=== PATIENT | male | born 1985 | race Caucasian/White ===

== ENCOUNTER 2025-03-18 13:03 | Outpatient (OUT) | payer OTHER, SELFPAY ==
--- OUTSIDE RECORDS SUMMARY | 2025-03-18 13:08 | XMS_ITS | Clinical Summary ---
Author Organization [facility] Address [address] [place] [address] Care Team Providers Care Electronics Engineering Technologist Name Role Phone Unavailable Primary Care Provider Unavailabl e Encounters DateTypeDepartmentCare AlsoSqognwfvodm58/08/2025 4:45 PM EDTAncillary Procedure [facility] [address] [place] [address] Sciatica, unspecified side; Radiculopathy, site unspecified; Low back pain, fgxfcakaeew08/08/2025Travelfrom Last 3 Months Social History Tobacco UseTypesPacks/DayYears UsedDateSmoking Tobacco: Never AssessedSex and Gender InformationValueDate RecordedSex Assigned at BirthNot on fileLegal Sex Male07/05/2022 6:44 PM EDTGender IdentityNot on fileSexual OrientationNot on file Plan of Treatment Not on file Procedures Procedure NamePriorityDate/TimeAssociated DiagnosisCommentsMR LUMBAR SPINE WO QSHRACPKBqwuqws31/08/2025 5:34 PM EDT Sciatica, unspecified side Radiculopathy, site unspecified Low back pain, unspecified from Last 3 Months Results * MR lumbar spine wo contrast (12/29/2024 5:34 PM EDT)Anatomical Region LateralityModalitySpine, L-spineMagnetic ResonanceSpecimen (Source)Anatomical Location / LateralityCollection Method / VolumeCollection TimeReceived Time 12/30/2024 11:11 AM EDT Impressions 12/30/2024 11:18 AM EDT Degenerative changes lumbar spine as discussed, especially involving L4-L5. ELECTRONICALLY SIGNED BY: Yannick Matos MD Narrative 12/30/2024 11:18 AM EDT EXAMINATION/TECHNIQUE: MR LUMBAR SPINE WO CONTRAST HISTORY: ?? Low back pain for years. Former college football player. Symptoms worsening. Bilateral radiculopathy, worse on the right. COMPARISON: None. ? RESULT: Counting reference: ??Lumbosacral junction. For the purposes of this report, L5- S1 is considered the last well-formed disc space. 5 lumbar type vertebral bodies. Alignment: ?Grade 1 anterolisthesis of L4 on L5 measuring around 3 mm. Alignment otherwise near-anatomic. Bone marrow signal: Bone marrow edema near the bilateral facet joints at L4 and L5, likely reactive/degenerative etiology. No evidence for recent fracture. No pathologic marrow infiltration. Conus: ??The conus is within normal limits of signal intensity and morphology. ?? Paraspinal soft tissues: ?? Unremarkable. Lower thoracic spine: ??Visualized lower thoracic canal and foramina without significant narrowing. T12-L1: ??No significant canal or foraminal narrowing. L1-L2: ?No significant canal or foraminal narrowing. L2-L3: ?Disc bulge. Facet degenerative changes. Ligamentous hypertrophy. No significant canal or foraminal narrowing. L3-L4: ?Broad-based disc bulge with possible small central zone protrusion. Endplate osteophytes. Facet degenerative changes. Ligamentous hypertrophy. No significant canal or foraminal narrowing. L4-L5: ?Anterolisthesis with disc uncovering. Disc bulge. Endplate osteophytes. Extensive facetdegenerative changes. Facet joint effusions/synovitis, with apparent small synovial cyst anterior to the left- sided facet joints measuring around 3 mm. Moderate to severe canal narrowing. Moderate tosevere right and mild to moderate left foraminal narrowing. L5-S1: ?Facet degenerative changes. No significant canal or foraminal narrowing. Sacrum and iliac wings: ?? The visualized sacrum and iliac wings are unremarkable. Procedure Note Yannick Matos MD - 12/30/2024 EXAMINATION/TECHNIQUE: MR LUMBAR SPINE WO CONTRAST HISTORY: Low back pain for years. Former college football player.Symptoms worsening. Bilateral radiculopathy, worse on the right. COMPARISON: None. RESULT: Counting reference: Lumbosacral junction. For the purposes of thisreport, L5-S1 is considered the last well-formed disc space. 5 lumbar typevertebral bodies. Alignment: Grade 1 anterolisthesis of L4 on L5 measuring around 3 mm.Alignment otherwise near-anatomic. Bone marrow signal: Bone marrow edema near the bilateral facet joints atL4 and L5, likely reactive/degenerative etiology. No evidence for recentfracture. No pathologic marrow infiltration. Conus: The conus is within normal limits of signal intensity andmorphology. Paraspinal soft tissues: Unremarkable. Lower thoracic spine: Visualized lower thoracic canal and foraminawithout significant narrowing. T12-L1: No significant canal or foraminal narrowing. L1-L2: No significant canal or foraminal narrowing. L2-L3: Disc bulge. Facet degenerative changes. Ligamentous hypertrophy.No significant canal or foraminal narrowing. L3-L4: Broad-based disc bulge with possible small central zoneprotrusion. Endplate osteophytes. Facet degenerative changes. Ligamentoushypertrophy. No significant canal or foraminal narrowing. L4-L5: Anterolisthesis with disc uncovering. Disc bulge. Endplateosteophytes. Extensive facet degenerative changes. Facet jointeffusions/synovitis, with apparent small synovial cyst anterior to theleft-sided facet joints measuring around 3 mm. Moderate to severe canalnarrowing. Moderate to severe right and mild to moderate left foraminalnarrowing. L5-S1: Facet degenerative changes. No significant canal or foraminalnarrowing. Sacrum and iliac wings: The visualized sacrum and iliac wings areunremarkable. IMPRESSION: Degenerative changes lumbar spine as discussed, especially involvingL4-L5. ELECTRONICALLY SIGNED BY: Yannick Matos MD Authorizing ProviderResult TypeResult StatusDavibereket Paula MDIMCatie MRI PROCEDURES Final Result from Last 3 Months
--- OUTSIDE RECORDS SUMMARY | 2025-03-18 13:08 | XMS_ITS | Clinical Summary ---
Author Organization [facility] Address [address] [place] [address] Care Team Providers Care Gas Meter Mechanic Name Role Phone Unavailable Primary Care Provider Unavailabl e Social History Tobacco UseTypesPacks/DayYears UsedDateSmoking Tobacco: Never AssessedSex and Gender InformationValueDate RecordedSex Assigned at BirthNot on fileLegal Sex Male03/11/2021 7:33 PM ESTGender IdentityNot on fileSexual OrientationNot on file Plan of Treatment Not on file
--- OUTSIDE RECORDS SUMMARY | 2025-03-18 13:08 | XMS_ITS | Clinical Summary ---
Author Organization [facility] Address [address] [place] [address] Phone Care Team Providers Care Aircraft Cylinder Mechanic Name Role Phone Unavailable Primary Care Provider Unavailabl e Social History Tobacco UseTypesPacks/DayYears UsedDateSmoking Tobacco: Never AssessedSex and Gender InformationValueDate RecordedSex Assigned at BirthNot on fileLegal Sex Male03/17/2022 10:29 AM ESTGender IdentityNot on fileSexual OrientationNot on file Plan of Treatment Not on file
--- NOTE | 2025-03-18 13:50 | P.CN_ITS ---
Consult Note: HPI Data of Consult Patient: known to practice within the last 3 years Consult date: 03/18/25 Requesting Physician: Brooke Tran NP Primary Care Provider: Non-Staff Physician, MD Consult Narrative Reason for consult: low back right leg pain Narrative: Jeffrey Price a pleasant 39 year old male presents for evaluation of low back, right leg, right groin pain. Patient has had chronic low back pain > 1 year but over the last 6 months has had significant pain and weakness without injury or cause. patient has failed to benefit from > 6 weeks of PT and provider guided HEP, heat, ice, tylenol, nsaids. recent lumbar MRI consistent with severe central stenosis at L4-5 and moderate to severe right foraminal narrowing with extensive facet changes and joint effusions with synovial cyst to left facet. pt noting moderate to severe pain with standing, walking, pushing, pulling, lifting, stairs, bending, activity, and sleep. patient has failed tylenol, motrin, and prednisone. Recently evaluated by JEFFREY Raymond who recommends pt undergo L4-5 TFESI prior to consideration of surgical intervention cc:: CC: Brooke Tran NP Review of Systems ROS Musculoskeletal Reports: back pain and extremity pain Exam Constitutional Documenting provider has reviewed patient's vital signs: yes Common normals: no apparent distress, oriented x3 and alert General appearance: cooperative HENMT Common normals: normocephalic, hearing grossly normal bilaterally and moist oral mucous membranes Head and scalp: normocephalic Eye Common normals: PERRL Pupil: PERRL Neck & C-Spine Common normals: full ROM General: normal visual inspection Chest Common normals: inspection of chest normal Respiratory Common normals: normal respiratory effort, no retractions and no use of accessory muscles Back & Pelvis Lumbar spine/lower back: pain with ROM, lumbar spinal tenderness and straight leg raise positive right; ROM not limited Other: decreased sensation right L4/5 with radiculopathy moderate right hip/groin pain with external rotation right groin pain with VIKA/FADIR but negative SIJ pain Extremity Right lower extremity: hip joint Neuro Common normals: oriented x3 Sensorium/orientation: alert Psych Common normals: mental status grossly normal, thought process normal, cooperative, affect normal, speech normal and activity/motor behavior normal Speech: normal speech Thought process: normal thought process Results Additional Findings Additional findings: If on a controlled substance or opioids, I have checked an [place]AR[place] report on this patient and there are no aberrancies noted in the prescribing history.??If on a controlled substance or opioid a drug screen was completed and reviewed within the last year, and if there has not been a drug screen completed we ordered one today to monitor higher risk, state monitored pain medication use. As part of providing excellent, safe, comprehensive care, the following was completed at our patient's visit: 1. A medication reconciliation and review to ensure accurate knowledge of current/active medications, including asking our patients to inform us about any gohq-qvx-ntisiqx medications or herbal remedies/nutritional supplements/alternative remedies. 2. A review to specifically ensure our patients have had annual screening for screening for depression, screening for tobacco use, and screening for unhealthy alcohol use. For concerning screenings had a discussion with the patient, provided patient education, and recommended follow-up with primary care provider when appropriate. If patient noted with a risk of falling, they received education on strength, gait, and balance training to prevent future risk of falling. Portions of this note may have been carried over from the previous visit and updated as appropriate. Please note this office utilizes paper charting in addition to the electronic medical record. A list of current medications, vitals, and PMH is available there as the clinical staff outside of myself do not have access to [employer] charting during the clinic day operations. As part of providing quality comprehensive care the current medications, vitals, and PMH were reviewed in the paper chart. Assessment and Plan Assessment and Plan (1) Lumbar stenosis with neurogenic claudication: (2) Lumbar radiculopathy: (3) Chronic right hip pain: (4) Right groin pain: Plan The patient has had over 3 months of moderate to severe low back, right leg, right groin pain with functional impairment and inadequate response to conservative care including NSAIDS (unless there are contraindication such as concurrent blood thinners), multiple oral or topical pain medications, and home exercise program/physical therapy.? Patient has completed >6 weeks of guided home exercise program and/or formal ph ysical therapy program without relief of their symptoms.? I have reviewed the imaging of the lumbar spine and no red flags were identified.? The Oswestry Disability Index was completed, and the patient scored a 20%.? proceed with bilateral L4-5 TFESI under fluoroscopy for lumbar stenosis with NC and lumbar radiculopathy update right hip xray to assess groin pain, look for oa and bone spurring. may consider right hip MRI due to significant groin pain dc motrin start mobic 15mg am with food. risks vs benefits reviewed f/u 2 weeks after TFESI, consider therapeutic facet injection if necessary
== END 2025-03-18 13:04 | disposition home or self-care (01) ==
LOC: PM 13:04
PROVIDERS: Visit Provider Nurse Practitioner
DX: M48.062 Spinal stenosis, lumbar region with neurogenic claudication (principal); M54.16 Radiculopathy, lumbar region; M25.551 Pain in right hip; R10.31 Right lower quadrant pain
CPT/HCPCS: G0463

== ENCOUNTER 2025-03-23 11:08 | Outpatient (OUT) | payer OTHER, SELFPAY ==
--- OUTSIDE RECORDS SUMMARY | 2025-03-23 11:14 | XMS_ITS | Clinical Summary ---
Author Organization [facility] Address [address] [place] [address] Care Team Providers Care Final Assembler Boat Name Role Phone Unavailable Primary Care Provider Unavailabl e Encounters DateTypeDepartmentCare MtrkBtkhqewgpjb44/08/2025 4:45 PM EDTAncillary Procedure [facility] [address] [place] [address] Sciatica, unspecified side; Radiculopathy, site unspecified; Low back pain, jsjmnknoken89/08/2025Travelfrom Last 3 Months Social History Tobacco UseTypesPacks/DayYears UsedDateSmoking Tobacco: Never AssessedSex and Gender InformationValueDate RecordedSex Assigned at BirthNot on fileLegal Sex Male07/05/2022 6:44 PM EDTGender IdentityNot on fileSexual OrientationNot on file Plan of Treatment Not on file Procedures Procedure NamePriorityDate/TimeAssociated DiagnosisCommentsMR LUMBAR SPINE WO HSMUBVENLbalbbb37/08/2025 5:34 PM EDT Sciatica, unspecified side Radiculopathy, [...]
--- OUTSIDE RECORDS SUMMARY | 2025-03-23 11:14 | XMS_ITS | Clinical Summary ---
Author Organization [facility] Address [address] [place] [address] Care Team Providers Care Mother Superior Name Role Phone Unavailable Primary Care Provider Unavailabl e Social History Tobacco UseTypesPacks/DayYears UsedDateSmoking Tobacco: Never AssessedSex and Gender InformationValueDate RecordedSex Assigned at BirthNot on fileLegal Sex Male03/11/2021 7:33 PM ESTGender IdentityNot on fileSexual OrientationNot on file Plan of Treatment Not on file
--- OUTSIDE RECORDS SUMMARY | 2025-03-23 11:14 | XMS_ITS | Clinical Summary ---
Author Organization [facility] Address [address] [place] [address] Phone Care Team Providers Care Tool Crib Clerk Name Role Phone Unavailable Primary Care Provider Unavailabl e Social History Tobacco UseTypesPacks/DayYears UsedDateSmoking Tobacco: Never AssessedSex and Gender InformationValueDate RecordedSex Assigned at BirthNot on fileLegal Sex Male03/17/2022 10:29 AM ESTGender IdentityNot on fileSexual OrientationNot on file Plan of Treatment Not on file
--- NOTE | 2025-03-23 11:28 | XR_ITS ---
The [address] [address] Patient Name: ISATU BELCHER MRN: [id number] date: 1985 Sex: M Assigned Patient Location: [facility] Current Patient Location: [facility] Accession/Order Number: [id number] Exam Date: 03/23/2025 11:20 Report Date: 03/23/2025 11:42 At the request of: HEBER CRUZ NP Procedure: XR hip RT min 2V RIGHT HIP - 2 views: CLINICAL HISTORY: Right Hip and Groin Pain. No reported injury. COMPARISON: None AP and frog-lateral views were obtained. There is no evidence of fracture or dislocation. There is subtle sclerosis at the femoral head. The hip joint space is maintained. No significant hypertrophy is seen. Mild sclerosis is visualized at the SI joint. There are no significant soft tissue abnormalities. XR/XR hip RT min 2V IMPRESSION: MILD NONSPECIFIC SCLEROSIS OF THE FEMORAL HEAD. NO ACUTE BONY FINDINGS. Impression dictated by: Meeta Villegas M.D. 03/23/2025 11:42 AM Dictation Location: [place] [address] Electronically authenticated by: [id number] Y Date: 03/23/2025 11:42
== END 2025-03-23 11:09 | disposition home or self-care (01) ==
PROVIDERS: PCP Family Medicine; Visit Provider Nurse Practitioner
DX: M25.551 Pain in right hip (principal)
CPT/HCPCS: 73502

== ENCOUNTER 2025-04-13 06:51 | Day surgery (SDC) | payer OTHER, SELFPAY ==
--- OUTSIDE RECORDS SUMMARY | 2025-04-13 06:54 | XMS_ITS | Patient Health Record ---
Author Organization [facility] Address [address] [place] [address] Support Name Relationship Address Phone Ketty Price Guarantor Unknown [phone] Reason For Referral No Information Medications Medication SIG (Take, Route, Frequency, Duration) Notes Start Date End Date Status Gentamicin Sulfate 0.3 % Solution 1 drop into affected eye Ophthalmic every 4 hrs; Duration: 5 days ctive Plan Of Treatment No Information
--- OUTSIDE RECORDS SUMMARY | 2025-04-13 06:54 | XMS_ITS | Clinical Summary ---
Author Organization [facility] Address [address] [place] [address] Phone Care Team Providers Care Firestop/Containment Worker Name Role Phone Unavailable Primary Care Provider Unavailabl e Social History Tobacco UseTypesPacks/DayYears UsedDateSmoking Tobacco: Never AssessedSex and Gender InformationValueDate RecordedSex Assigned at BirthNot on fileLegal Sex Male03/17/2022 10:29 AM ESTGender IdentityNot on fileSexual OrientationNot on file Plan of Treatment Not on file
--- OUTSIDE RECORDS SUMMARY | 2025-04-13 06:54 | XMS_ITS | Clinical Summary ---
Author Organization [facility] Address [address] [place] [address] Care Team Providers Care Operations Architect Name Role Phone Brooke Tran CNP Unavailable Remingtonnena Gus Angeline DO Unavailable [phone] Encounters DateTypeDepartmentCare UdrkAatxuxgoako33/11/2025bstract Neurology [address] [place], [place] [id number] (Hist), Unk Pcp 03/23/2025Transcribe Orders Referring Physician [address] [place] [phone] Brooke Tran CNP Lumbar radiculopathy (Primary Dx)from Last 3 Months Social History Tobacco UseTypesPacks/DayYears UsedDateSmoking Tobacco: Never AssessedSex and Gender InformationValueDate RecordedSex Assigned at BirthNot on fileLegal Sex Male03/11/2021 7:33 PM ESTGender IdentityNot on fileSexual OrientationNot on file Last Filed Vital Signs Vital SignReadingTime TakenCommentsBlood Pressure--Pulse--Temperature-- Respiratory Rate--Oxygen Saturation--Inhaled Oxygen Concentration--Dvnmii777.9 kg (260 lb)04/08/2025 12:47 PM FZZGszsni616.5 cm (6' 3 )04/08/2025 12:47 PM EST Body Mass Index32. 12:47 PM EST Plan of Treatment Not on file Procedures Procedure NamePriorityDate/TimeAssociated DiagnosisCommentsEXTERNAL IMAGING 04/02/2025 3:05 PM EST from Last 3 Months Results * EXTERNAL IMAGING (04/02/2025 3:05 PM EST)Anatomical RegionLateralityModality Other Narrative Authorizing ProviderResult TypeResult StatusExternal Provider PA-CRADIOLOGYFinal Result from Last 3 Months Insurance * Guarantor: Sonia Price TypeRelation to PatientDate of BirthPhone Billing AddressPersonal/BtjdtxNnzz11/[birth year][id number] [place] [address] [address] [place] [address] Care Teams Team MemberRelationshipSpecialtyStart DateEnd Date Brooke Tran CNP [address] [address] ReferringPain Lysemzgpzc97/1/25 Gus Paula DO [address] [place] [address] Referring TeamFamily Ihyudcue04/13/25
--- OUTSIDE RECORDS SUMMARY | 2025-04-13 06:54 | XMS_ITS | Clinical Summary ---
Author Organization [facility] Address [address] [place] [address] Care Team Providers Care Head Lineman Name Role Phone No, Pcp TAILINGS DAM PUMPER Primary Care Provider Unavailabl e Social History Tobacco UseTypesPacks/DayYears UsedDateSmoking Tobacco: Never AssessedSex and Gender InformationValueDate RecordedSex Assigned at BirthNot on fileLegal Sex Male03/06/2020 11:52 AM ESTGender IdentityNot on fileSexual OrientationNot on file Plan of Treatment Not on file Medical Devices Not on file Care Teams Team MemberRelationshipSpecialtyStart DateEnd Date No, Pcp, TAILINGS DAM PUMPER N/A Do not use PCP - GeneralFamily Cunhnhit92/14/20
--- OUTSIDE RECORDS SUMMARY | 2025-04-13 06:54 | XMS_ITS | Encounter Summary ---
Author Organization [facility] Address [address] [place] [address] Care Team Providers Care Smelter Operator Name Role Phone Brooke Tran CLINICAL APPLICATION MANAGER Unavailable Gus Paula DO Unavailable [phone] Source Comments In the event this information is protected by the Federal Confidentiality of Alcohol and Drug AbusePatient Records regulations: The Federal rules restrict any use of the information to criminally investigate or prosecute any alcohol or drug abuse patient.[facility] Reason for Referral * Diagnostic Procedure Only (Routine) - New RequestSpecialtyDiagnoses / ProceduresReferred By ContactReferred To ContactXR IMAGING Diagnoses Spinal stenosis, lumbar region with neurogenic claudication Lumbar radiculopathy Spondylolisthesis, lumbar region Procedures XR LUMBAR MOTION 4V AP/LAT/ FLEX/EXT RADEX SPINE LUMBOSACRAL MINIMUM 4 VIEWS Joann Guajardo PA-C [address] [place] [address] Phone: tel: fax: [place] [address] Referral IDStatusReasonStart DateExpiration DateVisits RequestedVisits [id number] Request Auto-Generated Referral / Encounter Details DateTypeDepartmentCare Team (Latest Contact Info)Thzuxgnsnsb13/11/2025bstract Neurology [address] [place] [address] (Hist), Unk Pcp Social History Tobacco UseTypesPacks/DayYears UsedDateSmoking Tobacco: Never AssessedSex and Gender InformationValueDate RecordedSex Assigned at BirthNot on fileLegal Sex Male03/11/2021 7:33 PM ESTGender IdentityNot on fileSexual OrientationNot on filedocumented as of this encounter Last Filed Vital Signs Vital SignReadingTime TakenCommentsBlood Pressure--Pulse--Temperature-- Respiratory Rate--Oxygen Saturation--Inhaled Oxygen Concentration--Qjazpw690.9 kg (260 lb)04/08/2025 12:47 PM BAWIlbiav080.5 cm (6' 3 )04/08/2025 12:47 PM EST Body Mass Index32.512 12:47 PM ESTdocumented in this encounter Progress Notes * Joann Guajardo PA-C - 04/08/2025 12:46 PM EST Images from the original note were not included. Per Triage: Jeffrey Price is a 39 year old male that requests evaluation of spine. Per review, they have symptomsof lower back pain, right hip and groin pain. Right leg pain. Weakness right leg. Numbness left ankle. Difficulty walking - limp BMI: 32 Nonsmoker Request: 1st available Referring provider: Brooke Tran's office referring the patient to be seen for Lumbar radiculopathy. Patient out of state: no 2nd opinion: yes, surgery offered Prior spine surgery: no CMT: Scheduled to have injection 04/13/25 Oral steroids Motrin Studies (Reports unless indicated) MRI lumbar spine report 12/29/24: Disposition: Based on triage, recommend patient be scheduled with surgical SARAH for eval. No PT tried. Did not have injection yet. Unsure of response of injection once patient has it Spine Xrays prior to appt: yes Please make sure patient imaging is available for review Joann Guajardo PA-C * Ariana Wood - 04/02/2025 2:51 PM EST Patient name: Jeffrey Price Are you being referred by a [facility] Provider or Pain Management Provider at [facility]? No If answer is YES please schedule directly with surgeon, triage does not need to be completed. Is this a self-referral No If not, who is the Referring Provider: Brooke Tran's office referring the patient to be seen for Lumbar radiculopathy. Is this a 2nd opinion from another spine surgeon? yes Were you offered surgery Per Pt: was told surgery was an option MRI/CT/myelogram within 12 months? Yes If NO , please refer to medical spine or PCP to complete above imaging, triage does not need to be completed If YES,?? please ask for the name/address of the facility where the MRI/CT/myelogram was completed: [facility] [address], [place] [address] MRI/CT/myelogram viewable in Epic: No If not, please provide [phone] to fax in imaging reports for review. Also, please inform patient to hand carry imaging disc to appointment. XR (spine) within 12 months: If YES,?? please ask for the name/address of the facility where the XR was completed: Dr. Woods's patients: Have you had previous EMG/Nerve Conduction Study, Ultrasound, or MRI for thesesame symptoms? If YES,?? please ask for the name/address of the facility where they were completed: Requested provider (First and Last name): any Are you interested in a virtual visit if offered? 1. Where are you having symptoms related to this visit? 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 Are you having any of the following symptoms: Difficulty walking I walk with a limp. Numbness Yes L ankle Weakness Yes R leg Trouble using your hands? No 3. What is your height? 6'3 What is your weight? 260 lbs 4. Are you a current smoker? No 5. Have you had any injections or physical therapy in the last 12 months? If YES then please ask for the name/address of the facility where the injections and/or physical therapy was completed 04/13/25 - scheduled to have injection Have you tried any other kinds of non-surgical treatments in the last 12 months? (For example: NSAIDS, muscle relaxants, analgesics, oral steroids, Chiropractor, Acupuncture): oral steroids, motrin 6. Are you currently taking daily prescribed narcotic medications for your current symptoms (For example Oxycodone, Hydrocodone, Tramadol, Morphine, Other)? No 7. Have you had previous spinal surgery for this same symptoms? No If YES?? please ask for the name of facility/address of where the surgery was completed: Additional Comments [phone] documented in this encounter Plan of Treatment NameTypePriorityAssociated DiagnosesOrder ScheduleXR LUMBAR MOTION 4V AP/LAT/ FLEX/EXTRadiologyRoutine Spinal stenosis, lumbar region with neurogenic claudication Lumbar radiculopathy Spondylolisthesis, lumbar region 1 Occurrences starting 04/08/2025 until 05/08/2026documented as of this encounter Visit Diagnoses Diagnosis Spinal stenosis, lumbar region with neurogenic claudication- Primary Lumbar radiculopathy Thoracic or lumbosacral neuritis or radiculitis, unspecified Spondylolisthesis, lumbar region documented in this encounter Care Teams Team MemberRelationshipSpecialtyStart DateEnd Date Brooke Tran CNP [address] [address] ReferringPain Rjxqrdcqgl87/1/25 Gus Paula DO [address] [place] [phone] NI Referring TeamFamily Ybqtmrxu51/13/25documented as of this encounter
--- OUTSIDE RECORDS SUMMARY | 2025-04-13 06:54 | XMS_ITS | Clinical Summary ---
Author Organization [facility] Address [address] [place] [address] Care Team Providers Care Architectural Model Maker Name Role Phone Unavailable Primary Care Provider Unavailabl e Social History Tobacco UseTypesPacks/DayYears UsedDateSmoking Tobacco: Never AssessedSex and Gender InformationValueDate RecordedSex Assigned at BirthNot on fileLegal Sex Male07/05/2022 6:44 PM EDTGender IdentityNot on fileSexual OrientationNot on file Plan of Treatment Not on file
[2025-04-13 07:07] VITALS: BP 140/83; PULSE 66; TEMP 36.7; O2SAT 100
[2025-04-13 07:39] VITALS: BP 158/88; BP 158/97; PULSE 59; PULSE 60; O2SAT 97; O2SAT 98
[2025-04-13] MEDS: LIDOCAINE HCL 2% 400 MG/20 ML MDV 3 ML INJ (07:40)
[2025-04-13] MEDS: BUPIVACAINE HCL 0.25% PF 25 MG/10 ML VIAL INJ (07:41)
[2025-04-13] MEDS: 0.9 % SODIUM CHLORIDE 10 ML SYRINGE - SALINE FLUSH INJ (07:41)
[2025-04-13] MEDS: IOHEXOL 240 MG/ML - 10 ML VIAL INJ (07:41)
[2025-04-13] MEDS: METHYLPREDNISOLONE ACETATE 80 MG/ML VIAL INJ (07:42)
--- NOTE | 2025-04-13 07:45 | W.PM.PROCNOT ---
Date of procedure: 04/13/25 Pre-op diagnosis: Pain due to lumbar stenosis with neurogenic claudication Post-op diagnosis: same as pre-op Procedure: Procedure: Bilateral L4-5 transforaminal epidural steroid injection Medications: Bupivacaine 0.25% 2cc, lidocaine 2% 1cc, depomedrol 80mg The patient was seen and examined in the preoperative holding area.? Informed consent was obtained and placed on the chart.? Patient was brought to the medical procedure unit and placed in the prone position where a timeout was completed verifying the correct patient, procedure site, position, and planned special equipment using sterile aseptic technique.? Under direct fluoroscopic visualization a 25-gauge Quincke tipped spinal needle was advanced at level left L4-5 to the designated neural foramen where contrast dye was injected to show adequate spread.? There was no evidence of vascular or adverse uptake.? Epidural spread was appreciated.? The above-mentioned injectate was then placed in a 1.5 mL aliquot preceded by negative aspiration.? The needle was removed. The same procedure, at the same level, was completed on the opposite side. ? Patient was taken to the postprocedural recovery area and monitored for an appropriate length of time before found suitable for discharge in the accompaniment of a responsible adult. Anesthesia: Local Surgeon: Margot Hart Pathology: none sent Condition: stable Disposition: no change
== END 2025-04-13 07:46 | disposition home or self-care (01) ==
LOC: SURGOUT 06:52
PROVIDERS: PCP Family Medicine; Visit Provider Anesthesiology
DX: M48.062 Spinal stenosis, lumbar region with neurogenic claudication (principal); G89.29 Other chronic pain
CPT/HCPCS: 64483; J0665; J1010; Q9966

== ENCOUNTER 2025-04-22 08:50 | Outpatient (OUT) | payer OTHER, SELFPAY ==
--- OUTSIDE RECORDS SUMMARY | 2025-04-22 08:52 | XMS_ITS | Encounter Summary ---
Author Organization [facility] Address [address] [place] [address] Care Team Providers Care Human Resources Office Manager Name Role Phone Brooke Tran PLEASURE CRAFT SAILOR Unavailable Gus Puala DO Unavailable [phone] Source Comments In the event this information is protected by the Federal Confidentiality of Alcohol and Drug AbusePatient Records regulations: The Federal rules restrict any use of the information to criminally investigate or prosecute any alcohol or drug abuse patient.[facility] Reason for Referral * Diagnostic Procedure Only (Routine) - New RequestSpecialtyDiagnoses / ProceduresReferred By ContactReferred To ContactXR IMAGING Diagnoses Spinal stenosis, lumbar region with neurogenic claudication Lumbar radiculopathy Spondylolisthesis, lumbar region Procedures XR LUMBAR MOTION 4V AP/LAT/ FLEX/EXT RADEX SPINE LUMBOSACRAL MINIMUM 4 VIEWS Joann Guajardo PA-C [address] [place] [address] Phone: tel: fax: [place] [address] Referral IDStatusReasonStart DateExpiration DateVisits RequestedVisits [id number] Request Auto-Generated Referral / Encounter Details DateTypeDepartmentCare Team (Latest Contact Info)Rgptgahgmrz82/11/2025bstract Neurology [address] [place] [address] (Hist), Unk Pcp Social History Tobacco UseTypesPacks/DayYears UsedDateSmoking Tobacco: Never AssessedSex and Gender InformationValueDate RecordedSex Assigned at BirthNot on fileLegal Sex Male03/11/2021 7:33 PM ESTGender IdentityNot on fileSexual OrientationNot on filedocumented as of this encounter Last Filed Vital Signs Vital SignReadingTime TakenCommentsBlood Pressure--Pulse--Temperature-- Respiratory Rate--Oxygen Saturation--Inhaled Oxygen Concentration--Gtknux462.9 kg (260 lb)04/08/2025 12:47 PM YZNBigjhe177.5 cm (6' 3 )04/08/2025 12:47 PM EST [...] Health Provider or Pain Management Provider at [facility]? No If answer is YES please [...] the facility where the MRI/CT/myelogram was completed: [facility] [address], [place] [address] MRI/CT/myelogram viewable in Epic: No If not, please provide [phone] to fax in imaging reports for review. [...] where the surgery was completed: Additional Comments [phone] documented in this encounter Plan of Treatment [...] MemberRelationshipSpecialtyStart DateEnd Date Brooke Tran CNP [address] [address] ReferringPain Jsbhquetbl29/1/25 Gus Paula DO [address] [place] [phone] NI Referring TeamFamily Rwdzkuwo08/13/25documented as of this encounter
--- OUTSIDE RECORDS SUMMARY | 2025-04-22 08:52 | XMS_ITS | Clinical Summary ---
Author Organization [facility] Address [address] [place] [address] Care Team Providers Care Manager Heart Name Role Phone Brooke Tran CNP Unavailable Remingtonnena Gus Angeline DO Unavailable [phone] Encounters DateTypeDepartmentCare LvdaYmhqlarognv15/11/2025bstract Neurology [address] [place], [place] [address] (Hist), Unk Pcp 03/23/2025Transcribe Orders Referring Physician [address] [place] [phone] Brooke Tran CNP Lumbar radiculopathy (Primary Dx)from Last 3 Months Social History Tobacco UseTypesPacks/DayYears UsedDateSmoking Tobacco: Never AssessedSex and Gender InformationValueDate RecordedSex Assigned at BirthNot on fileLegal Sex Male03/11/2021 7:33 PM ESTGender IdentityNot on fileSexual OrientationNot on file Last Filed Vital Signs Vital SignReadingTime TakenCommentsBlood Pressure--Pulse--Temperature-- Respiratory Rate--Oxygen Saturation--Inhaled Oxygen Concentration--Zpdkwe115.9 kg (260 lb)04/08/2025 12:47 PM RCBMzxwty850.5 cm (6' 3 )04/08/2025 12:47 PM EST [...] Price TypeRelation to PatientDate of BirthPhone Billing AddressPersonal/LnjtclFtzj[birth year][id number] [place] [address] [address] [place] [address] Care Teams Team MemberRelationshipSpecialtyStart DateEnd Date Brooke Tran CNP [address] [address] ReferringPain Mqxypcetjw22/1/25 Gus Paula DO [address] [place] [address] Referring TeamFamily Unwiyjky08/13/25
--- OUTSIDE RECORDS SUMMARY | 2025-04-22 08:52 | XMS_ITS | Clinical Summary ---
Author Organization [facility] Address [address] [place] [address] Phone Care Team Providers Care Dock Manager Name Role Phone Unavailable Primary Care Provider Unavailabl e Social History Tobacco UseTypesPacks/DayYears UsedDateSmoking Tobacco: Never AssessedSex and Gender InformationValueDate RecordedSex Assigned at BirthNot on fileLegal Sex Male03/17/2022 10:29 AM ESTGender IdentityNot on fileSexual OrientationNot on file Plan of Treatment Not on file
--- OUTSIDE RECORDS SUMMARY | 2025-04-22 08:52 | XMS_ITS | Patient Health Record ---
Author Organization [facility] Address [address] [place] [address] Support Name Relationship Address Phone Ketty Price Guarantor Unknown [phone] Reason For Referral No Information Medications Medication SIG (Take, Route, Frequency, Duration) Notes Start Date End Date Status Gentamicin Sulfate 0.3 % Solution 1 drop into affected eye Ophthalmic every 4 hrs; Duration: 5 days ctive Plan Of Treatment No Information
--- OUTSIDE RECORDS SUMMARY | 2025-04-22 08:52 | XMS_ITS | Clinical Summary ---
Author Organization [facility] Address [address] [place] [address] Care Team Providers Care Gun Examiner Name Role Phone Unavailable Primary Care Provider Unavailabl e Social History Tobacco UseTypesPacks/DayYears UsedDateSmoking Tobacco: Never AssessedSex and Gender InformationValueDate RecordedSex Assigned at BirthNot on fileLegal Sex Male07/05/2022 6:44 PM EDTGender IdentityNot on fileSexual OrientationNot on file Plan of Treatment Not on file
--- NOTE | 2025-04-22 09:18 | PM.CN ---
Consult Note: HPI Data of Consult Patient: known to practice within the last 3 years Consult date: 04/22/25 Requesting Physician: Brooke Tran NP Primary Care Provider: CARLENE OCONNOR Consult Narrative Reason for consult: low back, right hip, right leg pain Narrative: Jeffrey Price a pleasant 39 year old male presents for evaluation of low back, right leg, right groin pain. Patient has had chronic low back pain > 1 year but over the last 6 months has had significant pain and weakness without injury or cause. patient has failed to benefit from > 6 weeks of PT and provider guided HEP, heat, ice, tylenol, nsaids. recent lumbar MRI consistent with severe central stenosis at L4-5 and moderate to severe right foraminal narrowing with extensive facet changes and joint effusions with synovial cyst to left facet. pt noting moderate to severe pain with standing, walking, pushing, pulling, lifting, stairs, bending, activity, and sleep. patient has failed tylenol, motrin, and prednisone. Recently evaluated by NS Dr Raymond who recommended bilateral L4-5 TFESI, which he underwent on 04/13/25 with 50% improvement however he continues to have persistent right groin pain and limitations to activity due to hip pain. pt pending evaluation with Dr Mejias for right hip/groin pain. recent right hip xray with results below. cc:: CC: Brooke Tran NP Review of Systems ROS Musculoskeletal Reports: back pain and extremity pain [facility] Medical History (Updated 04/22/25 @ 09:20 by Brooke Tran NP) Low back pain ?M54.50 - Low back pain, unspecified (ICD-10) Surgical History (Updated 03/18/25 @ 14:45 by Idania Whalen RN) S/P MCL (medial collateral ligament) repair ?Z98.890 - Other specified postprocedural states (ICD-10) Meds Home Medications and Allergies Home Medications ?Medication ?Instructions ?Recorded ?Confirmed ?Type meloxicam 15 mg tablet 15 mg PO DAILY 04/07/25 04/13/25 History Allergies Allergy/AdvReac Type Severity Reaction Status Date / Time No Known Drug Allergies Allergy Verified 04/13/25 07:05 Exam Constitutional Documenting provider has reviewed patient's vital signs: yes Common normals: no apparent distress, oriented x3 and alert General appearance: cooperative HENVA Common normals: normocephalic, hearing grossly normal bilaterally and moist oral mucous membranes Head and scalp: normocephalic Eye Common normals: PERRL Pupil: PERRL Neck & C-Spine Common normals: full ROM General: normal visual inspection Chest Common normals: inspection of chest normal Respiratory Common normals: normal respiratory effort, no retractions and no use of accessory muscles Back & Pelvis Lumbar spine/lower back: pain with ROM, lumbar spinal tenderness and straight leg raise negative bilaterally; ROM not limited Other: sensation intact BLE moderate right hip/groin pain with external rotation right groin pain with VIKA/FADIR moderate tenderness over right GTB with radiation into right lateral thigh Extremity Right lower extremity: hip joint Neuro Common normals: oriented x3 Sensorium/orientation: alert Psych Common normals: mental status grossly normal, thought process normal, cooperative, affect normal, speech normal and activity/motor behavior normal Speech: normal speech Thought process: normal thought process Results Imaging right hip xray: Radiologist's impression: AP and frog-lateral views were obtained. There is no evidence of fracture or dislocation. There is subtle sclerosis at the femoral head. The hip joint space is maintained. No significant hypertrophy is seen. Mild sclerosis is visualized at the SI joint. There are no significant soft tissue abnormalities. Additional Findings Additional findings: If on a controlled substance or opioids, I have checked an [place]AR[place] report on this patient and there are no aberrancies noted in the prescribing history.??If on a controlled substance or opioid a drug screen was completed and reviewed within the last year, and if there has not been a drug screen completed we ordered one today to monitor higher risk, state monitored pain medication use. As part of providing excellent, safe, comprehensive care, the following was completed at our patient's visit: 1. A medication reconciliation and review to ensure accurate knowledge of current/active medications, including asking our patients to inform us about any xvdv-mpq-htjoles medications or herbal remedies/nutritional supplements/alternative remedies. 2. A review to specifically ensure our patients have had annual screening for screening for depression, screening for tobacco use, and screening for unhealthy alcohol use. For concerning screenings had a discussion with the patient, provided patient education, and recommended follow-up with primary care provider when appropriate. If patient noted with a risk of falling, they received education on strength, gait, and balance training to prevent future risk of falling. Portions of this note may have been carried over from the previous visit and updated as appropriate. Please note this office utilizes paper charting in addition to the electronic medical record. A list of current medications, vitals, and PMH is available there as the clinical staff outside of myself do not have access to [facility] charting during the clinic day operations. As part of providing quality comprehensive care the current medications, vitals, and PMH were reviewed in the paper chart. Assessment and Plan Assessment and Plan (1) Lumbar stenosis with neurogenic claudication: (2) Lumbar radiculopathy: (3) Chronic right hip pain: (4) Right groin pain: (5) Greater trochanteric bursitis of right hip: Plan The patient has had over 3 months of moderate to severe low back, right leg, right groin pain with functional impairment and inadequate response to conservative care including NSAIDS (unless there are contraindication such as concurrent blood thinners), multiple oral or topical pain medications, and home exercise program/physical therapy.? Patient has completed >6 weeks of guided home exercise program and/or formal physical therapy program without relief of their symptoms.? I have reviewed the imaging of the lumbar spine and no red flags were identified.? The Oswestry Disability Index was completed, and the patient scored a 16%.? proceed with right GTB injection for right greater trochanteric bursitis continue f/u with orthopedics for evaluation of right hip/groin pain f/u after injection
== END 2025-04-22 08:51 | disposition home or self-care (01) ==
LOC: PM 08:50
PROVIDERS: PCP Family Medicine; Visit Provider Nurse Practitioner
DX: M48.061 Spinal stenosis, lumbar region without neurogenic claudication (principal); M54.16 Radiculopathy, lumbar region; M25.551 Pain in right hip; G89.29 Other chronic pain; R10.31 Right lower quadrant pain; M70.61 Trochanteric bursitis, right hip
CPT/HCPCS: G0463